=== PATIENT | female | born 1960 | race Caucasian/White ===

== ENCOUNTER 2017-11-03 12:37 | Emergency (ER) | payer OTHER, BC ==
[2017-11-03] MEDS: LORAZEPAM 1 MG TAB PO (13:29)
[2017-11-03] MEDS: HYDROCODONE/APAP (10/325) TAB PO (13:29)
== END 2017-11-03 14:15 | disposition home or self-care (01) ==
LOC: E/R 12:37
DX: M25.552 Pain in left hip (principal); I10 Essential (primary) hypertension; R40.2142 Coma scale, eyes open, spontaneous, at arrival to emergency department; R40.2252 Coma scale, best verbal response, oriented, at arrival to emergency department; R40.2362 Coma scale, best motor response, obeys commands, at arrival to emergency department; Z48.02 Encounter for removal of sutures
CPT/HCPCS: 99283; Z7502